=== PATIENT | female | born 1985 | race Caucasian/White ===

== ENCOUNTER 2017-09-18 20:06 | Emergency (ER) | END 2017-09-18 20:32 | disposition home or self-care (01) ==

== ENCOUNTER 2018-02-26 11:48 | Outpatient (CLI) | END 2018-02-26 14:40 | disposition home or self-care (01) ==

== ENCOUNTER 2018-03-08 06:30 | Inpatient (IN) | END 2018-03-10 17:02 | disposition home or self-care (01) | DRG 807 ==